=== PATIENT | male | born 2000 | race Hispanic/Latino ===

== ENCOUNTER 2024-11-13 12:25 | Emergency (ER) | payer OTHER, SELFPAY ==
[2024-11-13 12:29] VITALS: BP 130/71; PULSE 83; RESP 13; TEMP 36.7; O2SAT 98; BMI 19.2
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
[2024-11-13] MEDS: ACETAMINOPHEN 325 MG TABLET 975 MG PO (13:48)
[2024-11-13] MEDS: LIDOCAINE 5% PATCH 1 EACH TOP (13:48)
[2024-11-13 14:54] VITALS: BP 124/67; PULSE 79; RESP 15; O2SAT 99
== END 2024-11-13 14:56 | disposition home or self-care (01) ==
PROVIDERS: Emergency Provider Physician Assistant
DX: S63.502A Unspecified sprain of left wrist, initial encounter (principal); S66.912A Strain of unspecified muscle, fascia and tendon at wrist and hand level, left hand, initial encounter; S39.012A Strain of muscle, fascia and tendon of lower back, initial encounter; V29.99XA Rider (driver) (passenger) of other motorcycle injured in unspecified traffic accident, initial encounter
CPT/HCPCS: 71046; 72100; 73110; 73502; 99284